=== PATIENT | male | born 1955 | race American Indian/Alaskan Native ===

== ENCOUNTER 2017-02-25 05:45 | Inpatient (IN) | payer BC ==
--- NOTE | 2017-02-25 06:35 | XRay Report ---
FINAL REPORT EXAM: XR CHEST ROUTINE 2V HISTORY: Shortness of breath TECHNIQUE: PA and lateral views of the chest were submitted. FINDINGS: Heart size and mediastinum appear normal. The thoracic aorta is mildly tortuous. Pleural fluid is not seen. The lungs otherwise are clear. The skeletal structures do not show any acute changes. IMPRESSION: No active chest disease.
[2017-02-25] MEDS ORDERED: ZOFRAN IV ONE ×2 (07:01→11:12)
--- NOTE | 2017-02-25 07:05 | Emergency Department Report ---
HPI - General Chief Complaint: Abdominal Pain Time Seen by Provider: 02/25/17 06:49 - HPI HPI: This is a 61-year-old male who presents to the emergency department with complaint of some abdominal pain, nausea, vomiting, acid reflux and shortness of breath that started last night after the patient went out to eat. He said at first it felt like a burning sensation like acid reflux and then lead to nausea with vomiting 4 times. He also started having some diarrhea. He says his abdomen hurts "like when you have diarrhea." He says that the abdominal discomfort is causing him to feel like he is short of breath. He has a past medical history of asthma, GERD, hypertension. He just drove here from [facility] yesterday and has a primary care physician there. ED Past Medical Hx - Past Medical History Previous Medical History?: Yes Hx Hypertension: Yes Hx GERD: Yes Hx Asthma: Yes - Social History Smoking Status: Never Smoker Substance Use Type: None - Medications Home Medications: Home Medications Medication Instructions Recorded Confirmed Last Taken Type ALBUTEROL Inhaler [Proair] 2 puff IH QID PRN 02/25/17 02/25/17 Unknown History Celecoxib [celeBREX] 200 mg PO BID 02/25/17 02/25/17 02/24/17 History Fluticasone/Salmeterol [Advair 1 each IH BID 02/25/17 02/25/17 Unknown History 100-50 Diskus] Losartan/Hydrochlorothiazide 1 each PO DAILY 02/25/17 02/25/17 Unknown History [Losartan-Hctz 100-25 mg Tab] Prednisone [predniSONE 10 mg 10 mg PO .TAPER 02/25/17 02/25/17 02/24/17 History (6-Day Pack, 21 Tabs)] ED Review of Systems ROS: Stated complaint: SOB/ABD PAIN Other details as noted in HPI Comment: All other systems reviewed and negative Constitutional: denies: chills, fever Eyes: denies: eye pain, eye discharge, vision change ENT: denies: ear pain, throat pain Respiratory: shortness of breath. denies: wheezing Cardiovascular: denies: chest pain, palpitations Gastrointestinal: abdominal pain, nausea, vomiting, diarrhea Genitourinary: denies: urgency, dysuria Musculoskeletal: denies: back pain, joint swelling, arthralgia Skin: denies: rash, lesions Neurological: denies: headache, weakness, paresthesias Physical Exam - Physical Exam Vital Signs: Vital Signs 02/25/17 02/25/17 05:59 06:06 Temperature 97.4 F L Pulse Rate 93 H Respiratory 20 20 Rate Blood Pressure 170/102 O2 Sat by Pulse 94 96 Oximetry Physical Exam: GENERAL: The patient is well-developed well-nourished. HENT: Normocephalic. Atraumatic. Patient has moist mucous membranes. EYES: Extraocular motions are intact. Pupils equal reactive to light bilaterally. NECK: Supple. Trachea is midline. CHEST/LUNGS: Clear to auscultation. There is no respiratory distress noted. HEART/CARDIOVASCULAR: Regular. There is no tachycardia. There is no murmur. ABDOMEN: Abdomen is soft. Mild generalized tenderness to palpation. No guarding or rebound tenderness. Obese habitus. Patient has normal bowel sounds. SKIN: Skin is warm and dry. NEURO: The patient is awake, alert, and oriented. The patient is cooperative. The patient has no focal neurologic deficits. The patient has normal speech. MUSCULOSKELETAL: There is no tenderness or deformity. There is no limitation range of motion. There is no evidence of acute injury. ED Course Vital Signs 02/25/17 02/25/17 05:59 06:06 Temperature 97.4 F L Pulse Rate 93 H Respiratory 20 20 Rate Blood Pressure 170/102 O2 Sat by Pulse 94 96 Oximetry ED Medical Decision Making - Lab Data Result diagrams: 02/25/17 06:40 02/25/17 06:40 - EKG Data -: EKG Interpreted by [place] EKG shows normal: sinus rhythm, axis (left axis deviation), intervals, QRS complexes, ST-T waves (nonspecific ST-T waves) Rate: normal - EKG Data When compared to previous EKG there are: previous EKG unavailable Interpretation: nonspecific ST-T wave slava - Radiology Data Radiology results: report reviewed, image reviewed interpreted by me: Chest x-ray does not show any acute process. There are no pleural effusions, obvious pneumonia and there is no pneumothorax. Abdominal x-ray shows nonspecific nonobstructive bowel gas. CT ABDOMEN PELVIS WITH CONTRAST: HISTORY: abdominal pain. COMPARISON: none. TECHNIQUE: Helical CT in 1.25mm intervals following IV contrast. Sagittal and coronal reconstructions. FINDINGS: Lung bases: Normal. Liver: Normal. Biliary system: Normal. Pancreas: Normal. Spleen: Normal. Kidneys/ureters/bladder: Normal. Adrenal glands: Normal. Aorta: Normal. Intestines: Normal. Appendix: Normal. Pelvic viscera: Normal. Ascites: None. Adenopathy: None. Musculoskeletal: Moderate thoracolumbar spondylosis is noted. IMPRESSION: Unremarkable CT scan of the abdomen and pelvis with contrast. Transcribed By: TTR Dictated By: BAUDILIO GOMEZ JR, MD Electronically Authenticated By: BAUDILIO GOMEZ JR, MD Signed Date/Time: 02/25/[address] ABDOMEN PELVIS WITH CONTRAST: HISTORY: abdominal pain. COMPARISON: none. TECHNIQUE: Helical CT in 1.25mm intervals following IV contrast. Sagittal and coronal reconstructions. FINDINGS: Lung bases: Normal. Liver: Normal. Biliary system: Normal. Pancreas: Normal. Spleen: Normal. Kidneys/ureters/bladder: Normal. Adrenal glands: Normal. Aorta: Normal. Intestines: Normal. Appendix: Normal. Pelvic viscera: Normal. Ascites: None. Adenopathy: None. Musculoskeletal: Moderate thoracolumbar spondylosis is noted. IMPRESSION: Unremarkable CT scan of the abdomen and pelvis with contrast. Transcribed By: TTR Dictated By: BAUDILIO GOMEZ JR, MD Electronically Authenticated By: BAUDILIO GOMEZ JR, MD Signed Date/Time: 02/25/17 1013 - Medical Decision Making This patient presents with the complaint of some abdominal discomfort, nausea and vomiting as well as some shortness breath. He thinks he may have gotten food poisoning from something he ate during his trip yesterday. Abdominal x- ray is unremarkable. CT of the abdomen and pelvis is also unremarkable and did not show any etiology of his symptoms. He was given some pain medication and nausea medication. Regarding his shortness of breath, a d-dimer was done secondary to his long car ride and it came back elevated at greater than 1000. Unable to get appropriate IV access to get a CT angiography of the chest, so a VQ scan was done that came back resulting as high probability for a pulmonary embolism. He has been placed on heparin and has no history of any type of GI or internal bleeding. Vital signs stable throughout his ED course. - Differential Diagnosis PE, Pneumonia, Food Poisoning, Colitis Critical Care Time: No Critical care attestation.: If time is entered above; I have spent that time in minutes in the direct care of this critically ill patient, excluding procedure time. ED Disposition Clinical Impression: Hypertensive urgency Pulmonary embolism Qualifiers: Pulmonary embolism type: other Chronicity: acute Acute cor pulmonale presence: without acute cor pulmonale Qualified Code(s): I26.99 - Other pulmonary embolism without acute cor pulmonale Abdominal pain Qualifiers: Abdominal location: generalized Qualified Code(s): R10.84 - Generalized abdominal pain Nausea & vomiting Qualifiers: Vomiting type: unspecified Vomiting Intractability: non-intractable Qualified Code(s): R11.2 - Nausea with vomiting, unspecified Disposition: DC-09 OP ADMIT IP TO THIS HOSP Is pt being admited?: Yes Condition: Stable Referrals: KHADIJAH ZARATE MD [Primary Care Provider] - 3-5 Days Time of Disposition: 12:50
[2017-02-25 07:15] LABS: Basophils % (Auto) 1.2 % (0.0-1.8); Eosinophils % (Auto) 1.8 % (0.0-4.3); Hematocrit 44.5 % (35.5-45.6); Hemoglobin 14.6 gm/dl (11.8-15.2); Mean Corpuscular HGB Conc 33 % (32-34); Mean Corpuscular Hemoglobin 27 pg (28-32); Mean Corpuscular Volume 82 fl (84-94); Platelet Count 248 K/mm3 (140-440); White Blood Count 9.4 K/mm3 (4.5-11.0)
--- NOTE | 2017-02-25 07:35 | XRay Report ---
ABDOMEN, 2 views: History: Abdominal pain. There is no evidence of free air beneath the diaphragms. The gas pattern within the abdomen is unremarkable. There is no evidence of bowel dilatation, significant air-fluid levels, or pathologic calcifications. Organ shadows are unremarkable. IMPRESSION: Unremarkable abdomen.
[2017-02-25 07:36] LABS: Alanine Aminotransferase 34 units/L (7-56); Albumin 3.9 g/dL (3.9-5); Albumin/Globulin Ratio 1.4 %; Alkaline Phosphatase 67 units/L (35-129); Anion Gap 19 mmol/L; BUN/Creatinine Ratio 23; Blood Urea Nitrogen 18 mg/dL (9-20); Calcium 8.9 mg/dL (8.4-10.2); Carbon Dioxide 28 mmol/L (22-30); Chloride 97.1 mmol/L (98-107); Glucose 218 mg/dL (75-100); Lipase 206 units/L (13-60); Potassium 3.5 mmol/L (3.6-5.0); Sodium 141 mmol/L (137-145); Total Protein 6.6 g/dL (6.3-8.2)
[2017-02-25 07:43] LABS: INR 0.92 (0.87-1.13)
[2017-02-25 07:44] LABS: Partial Thromboplastin Time 20.7 Sec. (24.2-36.6)
[2017-02-25] MEDS ORDERED: NACL ONE (08:02)
[2017-02-25 08:45] LABS: Bilirubin,Urine NEG (Negative); Blood,Urine NEG (Negative); Ketones,Urine NEG (Negative); Leukocyte Esterase,Urine NEG (Negative); Mucus,Urine FEW /HPF; Nitrite,Urine NEG (Negative); Protein,Urine <15 mg/dL mg/dL (Negative)
--- NOTE | 2017-02-25 10:18 | Cat Scan Report ---
CT ABDOMEN PELVIS WITH CONTRAST: HISTORY: abdominal pain. COMPARISON: none. TECHNIQUE: Helical CT in 1.25mm intervals following IV contrast. Sagittal and coronal reconstructions. FINDINGS: Lung bases: Normal. Liver: Normal. Biliary system: Normal. Pancreas: Normal. Spleen: Normal. Kidneys/ureters/bladder: Normal. Adrenal glands: Normal. Aorta: Normal. Intestines: Normal. Appendix: Normal. Pelvic viscera: Normal. Ascites: None. Adenopathy: None. Musculoskeletal: Moderate thoracolumbar spondylosis is noted. IMPRESSION: Unremarkable CT scan of the abdomen and pelvis with contrast.
--- NOTE | 2017-02-25 10:54 | Nuclear Medicine Report ---
LUNG SCAN, VENTILATION AND PERFUSION: History: Shortness of breath, elevated d-dimer. Technique: 5mci of Tc99m MAA was infused for the perfusion images. 15mci XE 133 gas was inhaled for the ventilatory images. Correlation is made with a chest x-ray dated 02/25/17. Findings: Inhalation of Xenon gas demonstrates a normal distribution of the activity throughout both lungs. The wash out phases demonstrate mild retention of the radiotracer bilaterally. After injection of Technetium 99m macroaggregated albumin gamma camera imaging of the lungs in multiple projections demonstrates Multiple bilateral mis-matched perfusion defects extending to the pleural surface. IMPRESSION: High probability for pulmonary embolus. These findings were discussed with Dr. Quintana in the ER at 1048 hrs.
[2017-02-25] MEDS ORDERED: HEPARIN 10,000 UNITS/10 ML IV ONE (11:04)
[2017-02-25] MEDS ORDERED: MORPHINE IV ONE (11:42)
[2017-02-25] MEDS ORDERED: NORMODYNE IV ONE (11:42)
[2017-02-25] MEDS ORDERED: HEPARIN/ 0.45% NACL-25,000 UNIT/500 ML 25,000 UNIT/500 ML BAG IV SCH (12:00)
--- NOTE | 2017-02-25 12:43 | History and Physical Report ---
History of Present Illness Chief complaint: My stomach hurts, and im short of breath History of present illness: 61 YO Male with HTN, GERD, Asthma, Obesity, Metabolic Syndrome presents to ED for evaluation. Pt states that he has experienced abdominal pain, nausea, vomiting, and shortness of breath over the past 1 day with worsening symptoms over the past 6 hours. Pt states that his symptoms worsened last night after eating a late dinner. Pt states that he felt a burning sensation like "acid reflux" and subsequent nausea with vomiting 4 times. Pt also acknowledges shortness of breath and mild chest discomfort with deep breathing over the past 6 hours as well. Pt seen and evaluted in ED and found to be in respiratory distress and placed on supplemental oxygen. VQ scan consistent with PE. Pt denies fever, chills, CP, Palpitations, syncope, hemoptysis, BRBPR, seizures, vertigo, or recent ill contacts, individual/family history of DVT/PE. Pt acknowledges prolonged immobilty and prolonged travel. Pt drove to [place] from [facility] yesterday. Pt acknowledges noncompliance with antihypertensive medication. Past History Past Medical History: GERD, hypertension, other (Asthma, Metabolic Syndrome) Past Surgical History: No surgical history, Other (reviewed) Social history: , lives with family. denies: smoking, alcohol abuse, prescription drug abuse Family history: diabetes, hypertension Medications and Allergies Allergies Allergy/AdvReac Type Severity Reaction Status Date / Time aspirin Allergy Vomiting Verified 02/25/17 06:05 Penicillins Allergy Rash Verified 02/25/17 06:05 Home Medications Medication Instructions Recorded Confirmed Last Taken Type ALBUTEROL Inhaler [Proair] 2 puff IH QID PRN 02/25/17 02/25/17 Unknown History Celecoxib [celeBREX] 200 mg PO BID 02/25/17 02/25/17 02/24/17 History Fluticasone/Salmeterol [Advair 1 each IH BID 02/25/17 02/25/17 Unknown History 100-50 Diskus] Losartan/Hydrochlorothiazide 1 each PO DAILY 02/25/17 02/25/17 Unknown History [Losartan-Hctz 100-25 mg Tab] Prednisone [predniSONE 10 mg 10 mg PO .TAPER 02/25/17 02/25/17 02/24/17 History (6-Day Pack, 21 Tabs)] Active Meds: Active Medications Heparin Sodium/Sodium Chloride (Heparin/ 0.45% Nacl-25,000 Unit/500 Ml) 25,000 unit in 500 mls @ 30 mls/hr IV TITR HARRISON; 1,500 UNITS/HR PRN Reason: Protocol Last Admin: 02/25/17 11:56 Dose: 1,500 units/hr, 30 mls/hr Review of Systems Constitutional: no weight loss, no weight gain, no fever, no chills Ears, nose, mouth and throat: no ear pain, no ear discharge, no tinnitis, no decreased hearing, no nose pain Cardiovascular: shortness of breath, no chest pain Respiratory: no cough, no cough with sputum Gastrointestinal: abdominal pain, nausea, vomiting, diarrhea Genitourinary Male: no dysuria, no hematuria, no flank pain, no discharge Rectal: no pain, no incontinence, no bleeding Musculoskeletal: no neck stiffness, no neck pain, no shooting arm pain, no arm numbness/tingling, no low back pain Integumentary: no rash, no pruritis, no redness, no sores, no wounds Neurological: no transient paralysis, no paralysis, no weakness, no parathesias , no numbness Psychiatric: no anxiety, no memory loss, no change in sleep habits, no sleep disturbances, no insomnia, no hypersomnia Endocrine: no cold intolerance, no heat intolerance, no polyphagia, no excessive thirst, no polydipsia, no polyuria Hematologic/Lymphatic: no easy bruising, no easy bleeding Allergic/Immunologic: no urticaria, no allergic rhinitis, no wheezing Exam - Constitutional Vitals: Temp Pulse Resp BP Pulse Ox 97.8 F 97 H 18 186/118 96 02/25/17 10:47 02/25/17 11:50 02/25/17 10:47 02/25/17 11:50 02/25/17 10:47 General appearance: Present: mild distress - EENT Eyes: Present: PERRL ENT: hearing intact, clear oral mucosa - Neck Neck: Present: supple, normal ROM - Respiratory Respiratory effort: labored Respiratory: bilateral: diminished - Cardiovascular Heart Sounds: Present: S1 & S2. Absent: rub, click - Extremities Extremities: pulses symmetrical, No edema Peripheral Pulses: within normal limits - Abdominal General gastrointestinal: Present: soft, non-tender, non-distended, normal bowel sounds Male genitourinary: Present: normal - Integumentary Integumentary: Present: clear, warm, dry - Musculoskeletal Musculoskeletal: gait normal, strength equal bilaterally - Psychiatric Psychiatric: appropriate mood/affect, intact judgment & insight, agitated - Neurologic Neurologic: CNII-XII intact, moves all extremities Results - Labs CBC & Chem 7: 02/25/17 06:40 02/25/17 06:40 Labs: Abnormal lab results 02/25/17 02/25/17 02/25/17 Range/Units 06:40 06:40 07:15 RBC 5.40 H (3.65-5.03) M/mm3 MCV 82 L (84-94) fl MCH 27 L (28-32) pg [place] % (Auto) 7.4 H (0.0-7.3) % Seg Neutrophils % 72.5 H (40.0-70.0) % APTT 20.7 L (24.2-36.6) Sec. D-Dimer 1121.32 H (0-234) ng/mlDDU Potassium 3.5 L (3.6-5.0) mmol/L Chloride 97.1 L (98-107) mmol/L Glucose 218 H (75-100) mg/dL Lipase 206 H (13-60) units/L Assessment and Plan - Patient Problems (1) Acute respiratory failure Current Visit: Yes Status: Acute Plan to address problem: supplemental oxygen, nebulizer therapy, aspiration precautions, supportive care. (2) GERD (gastroesophageal reflux disease) Current Visit: Yes Status: Acute Plan to address problem: PPI therapy, No alarm symptoms, outpatient DI f/u for screening endoscopy as indicated. (3) Metabolic syndrome Current Visit: Yes Status: Acute Plan to address problem: Balanced diet, increased physical activity, low cholesterol diet, (4) Hypertensive urgency Current Visit: Yes Status: Acute Plan to address problem: Monitor bp q shift,IV hydralazine prn, continue medical management, resume losartan, and HCTZ, (5) Pulmonary embolism Current Visit: Yes Status: Acute Qualifiers: Pulmonary embolism type: other Chronicity: acute Acute cor pulmonale presence: without acute cor pulmonale Qualified Code(s): I26.99 - Other pulmonary embolism without acute cor pulmonale Plan to address problem: Therapeutic anticoagulation with eliquis, supplemental oxygen, incentive spirometry, supportive care, (6) DVT prophylaxis Current Visit: Yes Status: Acute
[2017-02-25] MEDS ORDERED: DULCOLAX PR PRN (12:46)
[2017-02-25] MEDS ORDERED: ZOFRAN IV PRN (12:46)
[2017-02-25] MEDS ORDERED: PROVENTIL IH PRN (12:46)
[2017-02-25] MEDS ORDERED: MILK OF MAGNESIA PO PRN (12:46)
[2017-02-25] MEDS ORDERED: PROAIR IH PRN (18:49)
[2017-02-25] MEDS: BROVANA NEBU IH SCH (21:06)
[2017-02-25] MEDS: PULMICORT IH SCH (21:06)
[2017-02-25] MEDS: ELIQUIS PO SCH (21:34)
[2017-02-25] MEDS ORDERED: SALMETEROL IH SCH (22:00)
[2017-02-25] MEDS ORDERED: FLUTICASONE IH SCH (22:00)
[2017-02-25] MEDS ORDERED: ALUM-MAG HYDROX-SIMETH 200-200-20MG/5ML PO PRN (22:17)
[2017-02-25] MEDS: COZAAR PO SCH (22:35)
[2017-02-25] MEDS: HCTZ PO SCH (22:36)
[2017-02-25] MEDS: TYLENOL PO PRN (22:52)
[2017-02-26] MEDS: PULMICORT IH SCH ×2 (08:23→20:11)
[2017-02-26] MEDS: BROVANA NEBU IH SCH ×2 (08:23→20:11)
--- NOTE | 2017-02-26 09:40 | Progress Note ---
Assessment and Plan Assessment and plan: --Acute hypoxic respiratory failure; secondary to PE Oxygen titrate O2 sats to more than 90%, nebulizers supportive care --Acute pulmonary embolism; continue Eliquis Lower extremity venous Doppler negative for DVT, patient may need to follow with [employer] in [place] For possible hypercoagulable workup upon discharge --Malignant hypertension; moderate control, continue current antihypertensives and when necessary medications --Gastroesophageal reflux disease; continue Protonix --Morbid obesity; BMI 39.2, counseling done advised diet modification and exercise as tolerated and weight reduction when medically stable Patient verbalized understanding --DVT prophylaxis; patient is already on Eliquis --Full code Closely monitor the patient and adjust management as needed Possible discharge in 1-2 days if stable Patient's condition and treatment plan reviewed with the patient and the family member at the bedside They had many questions and I answered all of them History Interval history: Patient seen and examined medical records reviewed Complaints of mild shortness of breath, denies chest pain Alert awake Oriented 3 not in acute distress Hospitalist Physical - Constitutional Vitals: Temp Pulse Resp BP Pulse Ox 98.0 F 91 H 22 135/86 94 02/26/17 07:59 02/26/17 07:59 02/26/17 07:59 02/26/17 07:59 02/26/17 07:59 General appearance: Present: no acute distress, well-nourished, obese - EENT Eyes: Present: PERRL, EOM intact - Neck Neck: Present: supple, normal ROM - Respiratory Respiratory effort: normal Respiratory: bilateral: diminished, rhonchi, negative: rales, wheezing - Cardiovascular Rhythm: regular Heart Sounds: Present: S1 & S2 - Extremities Extremities: no ischemia, No edema - Abdominal General gastrointestinal: soft, non-tender, non-distended, normal bowel sounds - Integumentary Integumentary: Present: clear, warm - Psychiatric Psychiatric: appropriate mood/affect, cooperative - Neurologic Neurologic: CNII-XII intact, moves all extremities Results - Labs CBC & Chem 7: 02/25/17 06:40 02/25/17 06:40 Labs: Laboratory Last Values WBC 9.4 K/mm3 (4.5-11.0) 02/25/17 06:40 RBC 5.40 M/mm3 (3.65-5.03) H 02/25/17 06:40 Hgb 14.6 gm/dl (11.8-15.2) 02/25/17 06:40 Hct 44.5 % (35.5-45.6) 02/25/17 06:40 MCV 82 fl (84-94) L 02/25/17 06:40 MCH 27 pg (28-32) L 02/25/17 06:40 MCHC 33 % (32-34) 02/25/17 06:40 RDW 14.0 % (13.2-15.2) 02/25/17 06:40 Plt Count 248 K/mm3 (140-440) 02/25/17 06:40 Lymph % (Auto) 17.1 % (13.4-35.0) 02/25/17 06:40 [place] % (Auto) 7.4 % (0.0-7.3) H 02/25/17 06:40 Eos % (Auto) 1.8 % (0.0-4.3) 02/25/17 06:40 Baso % (Auto) 1.2 % (0.0-1.8) 02/25/17 06:40 Lymph # 1.6 K/mm3 (1.2-5.4) 02/25/17 06:40 [place] # 0.7 K/mm3 (0.0-0.8) 02/25/17 06:40 Eos # 0.2 K/mm3 (0.0-0.4) 02/25/17 06:40 Baso # 0.1 K/mm3 (0.0-0.1) 02/25/17 06:40 Seg Neutrophils % 72.5 % (40.0-70.0) H 02/25/17 06:40 Seg Neutrophils # 6.8 K/mm3 (1.8-7.7) 02/25/17 06:40 PT 12.8 Sec. (12.2-14.9) 02/25/17 07:15 INR 0.92 (0.87-1.13) 02/25/17 07:15 APTT 20.7 Sec. (24.2-36.6) L 02/25/17 07:15 D-Dimer 1121.32 ng/mlDDU (0-234) H 02/25/17 07:15 Heparin Anti-Xa Level 0.69 U.I./ml (0.3-0.7) 02/25/17 17:25 Sodium 141 mmol/L (137-145) 02/25/17 06:40 Potassium 3.5 mmol/L (3.6-5.0) L 02/25/17 06:40 Chloride 97.1 mmol/L (98-107) L 02/25/17 06:40 Carbon Dioxide 28 mmol/L (22-30) 02/25/17 06:40 Anion Gap 19 mmol/L 02/25/17 06:40 BUN 18 mg/dL (9-20) 02/25/17 06:40 Creatinine 0.8 mg/dL (0.8-1.5) 02/25/17 06:40 Estimated GFR > 60 ml/min 02/25/17 06:40 BUN/Creatinine Ratio 23 % 02/25/17 06:40 Glucose 218 mg/dL (75-100) H 02/25/17 06:40 Calcium 8.9 mg/dL (8.4-10.2) 02/25/17 06:40 Total Bilirubin 0.60 mg/dL (0.1-1.2) 02/25/17 06:40 AST 23 units/L (5-40) 02/25/17 06:40 ALT 34 units/L (7-56) 02/25/17 06:40 Alkaline Phosphatase 67 units/L (35-129) 02/25/17 06:40 Troponin T < 0.010 ng/mL (0.00-0.029) 02/25/17 06:40 Total Protein 6.6 g/dL (6.3-8.2) 02/25/17 06:40 Albumin 3.9 g/dL (3.9-5) 02/25/17 06:40 Albumin/Globulin Ratio 1.4 % 02/25/17 06:40 Lipase 206 units/L (13-60) H 02/25/17 06:40 Urine Color Yellow (Yellow) 02/25/17 08:24 Urine Turbidity Clear (Clear) 02/25/17 08:24 Urine pH 6.0 (5.0-7.0) 02/25/17 08:24 Ur Specific [place] 1.026 (1.003-1.030) 02/25/17 08:24 Urine Protein <15 mg/dl mg/dL (Negative) 02/25/17 08:24 Urine Glucose (UA) 150 mg/dL (Negative) 02/25/17 08:24 Urine Ketones Neg mg/dL (Negative) 02/25/17 08:24 Urine Blood Neg (Negative) 02/25/17 08:24 Urine Nitrite Neg (Negative) 02/25/17 08:24 Urine Bilirubin Neg (Negative) 02/25/17 08:24 Urine Urobilinogen 2.0 mg/dL (<2.0) 02/25/17 08:24 Ur Leukocyte Esterase Neg (Negative) 02/25/17 08:24 Urine WBC (Auto) 1.0 /HPF (0.0-6.0) 02/25/17 08:24 Urine RBC (Auto) 6.0 /HPF (0.0-6.0) 02/25/17 08:24 Urine Mucus Few /HPF 02/25/17 08:24
[2017-02-26] MEDS ORDERED: DELTASONE PO ONE (10:00)
[2017-02-26] MEDS: HCTZ PO SCH (10:06)
[2017-02-26] MEDS: ELIQUIS PO SCH ×2 (10:06→21:04)
[2017-02-26] MEDS: COZAAR PO SCH (10:07)
--- NOTE | 2017-02-26 13:11 | Vascular Lab Report ---
LOWER EXTREMITY VENOUS DUPLEX: REASON FOR EXAM: Pulmonary embolism, deep venous thrombosis. COMMENTS ON THE RIGHT: All veins visualized are freely compressible without evidence of internal echogenicity. Flow is spontaneous and phasic throughout. COMMENTS ON THE LEFT: All veins visualized are freely compressible without evidence of internal echogenicity. Flow is spontaneous and phasic throughout. IMPRESSION: No evidence of acute or chronic deep venous thrombosis in either lower extremity.
[2017-02-26] MEDS: TYLENOL PO PRN (21:06)
[2017-02-27] MEDS: APRESOLINE IV PRN ×2 (00:18→11:01)
[2017-02-27] MEDS: PULMICORT IH SCH (07:17)
[2017-02-27] MEDS: BROVANA NEBU IH SCH (07:17)
--- NOTE | 2017-02-27 08:10 | Progress Note ---
Assessment and Plan Assessment and plan: --Acute hypoxic respiratory failure; secondary to PE Oxygen titrate O2 sats to more than 90%, nebulizers supportive care --Acute pulmonary embolism; continue Eliquis Lower extremity venous Doppler negative for DVT, patient may need to follow with security system sales consultant in [place] For possible hypercoagulable workup upon discharge --Malignant hypertension; moderate control, continue current antihypertensives and when necessary medications --Gastroesophageal reflux disease; continue Protonix --Morbid obesity; BMI 39.2, counseling done advised diet modification and exercise as tolerated and weight reduction when medically stable Patient verbalized understanding --DVT prophylaxis; patient is already on Eliquis --Full code Closely monitor the patient and adjust management as needed Possible discharge in 1-2 days if stable Patient's condition and treatment plan reviewed with the patient and the family member at the bedside They had many questions and I answered all of them Hospitalist Physical - Constitutional Vitals: Temp Pulse Resp BP Pulse Ox 97.8 F 101 H 16 142/98 98 02/27/17 04:59 02/27/17 04:59 02/27/17 04:59 02/27/17 04:59 02/27/17 04:59 General appearance: Present: no acute distress, well-nourished, obese Results - Labs CBC & Chem 7: 02/25/17 06:40 02/25/17 06:40 Labs: Laboratory Last Values WBC 9.4 K/mm3 (4.5-11.0) 02/25/17 06:40 RBC 5.40 M/mm3 (3.65-5.03) H 02/25/17 06:40 Hgb 14.6 gm/dl (11.8-15.2) 02/25/17 06:40 Hct 44.5 % (35.5-45.6) 02/25/17 06:40 MCV 82 fl (84-94) L 02/25/17 06:40 MCH 27 pg (28-32) L 02/25/17 06:40 MCHC 33 % (32-34) 02/25/17 06:40 RDW 14.0 % (13.2-15.2) 02/25/17 06:40 Plt Count 248 K/mm3 (140-440) 02/25/17 06:40 Lymph % (Auto) 17.1 % (13.4-35.0) 02/25/17 06:40 Hart % (Auto) 7.4 % (0.0-7.3) H 02/25/17 06:40 Eos % (Auto) 1.8 % (0.0-4.3) 02/25/17 06:40 Baso % (Auto) 1.2 % (0.0-1.8) 02/25/17 06:40 Lymph # 1.6 K/mm3 (1.2-5.4) 02/25/17 06:40 Hart # 0.7 K/mm3 (0.0-0.8) 02/25/17 06:40 Eos # 0.2 K/mm3 (0.0-0.4) 02/25/17 06:40 Baso # 0.1 K/mm3 (0.0-0.1) 02/25/17 06:40 Seg Neutrophils % 72.5 % (40.0-70.0) H 02/25/17 06:40 Seg Neutrophils # 6.8 K/mm3 (1.8-7.7) 02/25/17 06:40 PT 12.8 Sec. (12.2-14.9) 02/25/17 07:15 INR 0.92 (0.87-1.13) 02/25/17 07:15 APTT 20.7 Sec. (24.2-36.6) L 02/25/17 07:15 D-Dimer 1121.32 ng/mlDDU (0-234) H 02/25/17 07:15 Heparin Anti-Xa Level 0.69 U.I./ml (0.3-0.7) 02/25/17 17:25 Sodium 141 mmol/L (137-145) 02/25/17 06:40 Potassium 3.5 mmol/L (3.6-5.0) L 02/25/17 06:40 Chloride 97.1 mmol/L (98-107) L 02/25/17 06:40 Carbon Dioxide 28 mmol/L (22-30) 02/25/17 06:40 Anion Gap 19 mmol/L 02/25/17 06:40 BUN 18 mg/dL (9-20) 02/25/17 06:40 Creatinine 0.8 mg/dL (0.8-1.5) 02/25/17 06:40 Estimated GFR > 60 ml/min 02/25/17 06:40 BUN/Creatinine Ratio 23 % 02/25/17 06:40 Glucose 218 mg/dL (75-100) H 02/25/17 06:40 Calcium 8.9 mg/dL (8.4-10.2) 02/25/17 06:40 Total Bilirubin 0.60 mg/dL (0.1-1.2) 02/25/17 06:40 AST 23 units/L (5-40) 02/25/17 06:40 ALT 34 units/L (7-56) 02/25/17 06:40 Alkaline Phosphatase 67 units/L (35-129) 02/25/17 06:40 Troponin T < 0.010 ng/mL (0.00-0.029) 02/25/17 06:40 Total Protein 6.6 g/dL (6.3-8.2) 02/25/17 06:40 Albumin 3.9 g/dL (3.9-5) 02/25/17 06:40 Albumin/Globulin Ratio 1.4 % 02/25/17 06:40 Lipase 206 units/L (13-60) H 02/25/17 06:40 Urine Color Yellow (Yellow) 02/25/17 08:24 Urine Turbidity Clear (Clear) 02/25/17 08:24 Urine pH 6.0 (5.0-7.0) 02/25/17 08:24 Ur Specific [place] 1.026 (1.003-1.030) 02/25/17 08:24 Urine Protein <15 mg/dl mg/dL (Negative) 02/25/17 08:24 Urine Glucose (UA) 150 mg/dL (Negative) 02/25/17 08:24 Urine Ketones Neg mg/dL (Negative) 02/25/17 08:24 Urine Blood Neg (Negative) 02/25/17 08:24 Urine Nitrite Neg (Negative) 02/25/17 08:24 Urine Bilirubin Neg (Negative) 02/25/17 08:24 Urine Urobilinogen 2.0 mg/dL (<2.0) 02/25/17 08:24 Ur Leukocyte Esterase Neg (Negative) 02/25/17 08:24 Urine WBC (Auto) 1.0 /HPF (0.0-6.0) 02/25/17 08:24 Urine RBC (Auto) 6.0 /HPF (0.0-6.0) 02/25/17 08:24 Urine Mucus Few /HPF 02/25/17 08:24
--- NOTE | 2017-02-27 09:16 | Discharge Summary ---
Providers - Providers Date of Admission: 02/25/17 12:46 Date of discharge: 02/27/17 Attending physician: MONICA FORREST Primary care physician: KHADIJAH ZARATE Hospitalization Reason for admission: shortness of breath and chest pain Condition: Stable Pertinent studies: VQ scan; high probability for PE Lower extremity venous Doppler; negative for DVT Chest x-ray; no acute abnormalities noted CT abdomen and pelvis; no acute abnormality noted Hospital course: 61-year-old morbidly obese -Portuguese male patient with significant past medical history of recent knee surgery, traveled from [place] to attend a meeting here was admitted through emergency room with shortness of breath and chest pain , initial workup is consistent with high d-dimer is, VQ scan high probability for PE, lower extremity venous Dopplers negative for DVT Patient wasn't started on full dose anticoagulation later changed to Eliquis 10 mg by mouth twice a day Patient also received symptomatic management. Symptoms significantly improved, but is comfortable in bed no new complaints, alert awake oriented 3 Ambulatory and tolerating oral nutrition [id number] evaluation physical examination done by me prior to discharge is unremarkable Final diagnosis; --Acute hypoxic respiratory failure; secondary to PE, received supplemental oxygen, at discharge patient's room air O2 sats are 97% --Acute pulmonary embolism; continue Eliquis, Lower extremity venous Doppler negative for DVT, --Malignant hypertension; moderate control, --Gastroesophageal reflux disease; continue Protonix --Morbid obesity; BMI 39.2, advised diet modification and exercise as tolerated and weight reduction when medically stable --Possible obstructive sleep apnea; patient needs outpatient sleep study to rule out LILY --Follow-up with private air intelligence specialist for further evaluation, possible hypercoagulable workup if needed Disposition: ME-01 TO HOME OR SELFCARE Time spent for discharge: 32 min Core Measure Documentation - Palliative Care Palliative Care/ Comfort Measures: Not Applicable - Core Measures Any of the following diagnoses?: DVT/PE - VTE Discharge Requirements Deep Vein Thrombosis/Pulmonary Embolism Present on Admission: Yes Has pt received <5 days of overlap therapy or INR<2.0: Yes (on Eliquis) Anticoagulant overlap therapy prescribed at discharge: No Contraindication No Overlap Therapy order at DC: Not Indicated (on Eliquis) Exam - Constitutional Vitals: Temp Pulse Resp BP Pulse Ox 98.3 F 89 22 165/103 94 02/27/17 07:30 02/27/17 07:30 02/27/17 07:30 02/27/17 07:30 02/27/17 07:30 General appearance: Present: no acute distress, obese - EENT Eyes: Present: PERRL, EOM intact - Neck Neck: Present: supple, normal ROM - Respiratory Respiratory effort: normal Respiratory: bilateral: diminished, rhonchi, negative: rales, wheezing - Cardiovascular Rhythm: regular Heart Sounds: Present: S1 & S2 - Extremities Extremities: no ischemia, No edema - Abdominal General gastrointestinal: Present: soft, non-tender, non-distended, normal bowel sounds - Integumentary Integumentary: Present: clear, warm - Musculoskeletal Musculoskeletal: strength equal bilaterally, generalized weakness - Psychiatric Psychiatric: appropriate mood/affect, cooperative - Neurologic Neurologic: CNII-XII intact, moves all extremities Plan Activity: no restrictions Diet: low salt Additional Instructions: see private air intelligence specialist [ [place]] in 1 week for further testing. Advise to see senior sales representative [ lung doc]out of town , for out patient sleep study to r/o obstructive sleep apnea. If you notice any bleeding ,contact MD or go to ER Follow up with: KHADIJAH ZARATE MD [Primary Care Provider] - 3-5 Days Prescriptions: ALPRAZolam [Xanax] 0.25 mg PO BID PRN #10 tablet PRN Reason: Anxiety Apixaban [Eliquis] 2 tab PO Q12HR #66 tablet hydrALAZINE [Apresoline TAB] 25 mg PO Q8HR #60 tablet
[2017-02-27] MEDS: HCTZ PO SCH (09:42)
[2017-02-27] MEDS: COZAAR PO SCH (09:42)
[2017-02-27] MEDS: ELIQUIS PO SCH (09:43)
[2017-02-27] MEDS ORDERED: DELTASONE PO SCH (10:00)
[2017-02-27 11:01] VITALS: BP 160/100
[2017-02-27] MEDS ORDERED: APRESOLINE PO SCH (14:00)
[2017-03-04] MEDS ORDERED: ELIQUIS PO SCH (22:00)
== END 2017-02-27 14:45 | disposition home or self-care (01) | DRG 175 ==
LOC: ED 05:45 → 3A 12:46
PROVIDERS: ADMIT Internal Medicine; ATTEND Internal Medicine
DX: I26.99 Other pulmonary embolism without acute cor pulmonale (principal); J96.01 Acute respiratory failure with hypoxia; I16.0 Hypertensive urgency; K21.9 Gastro-esophageal reflux disease without esophagitis; E88.81 Metabolic syndrome and other insulin resistance; Z88.6 Allergy status to analgesic agent; Z88.0 Allergy status to penicillin; J45.909 Unspecified asthma, uncomplicated; I10 Essential (primary) hypertension; Z83.3 Family history of diabetes mellitus; Z82.49 Family history of ischemic heart disease and other diseases of the circulatory system; E66.01 Morbid (severe) obesity due to excess calories; Z68.39 Body mass index [BMI] 39.0-39.9, adult
CPT/HCPCS: 36415; 71020; 74020; 74177; 78582; 80053; 81001; 83690; 84484; 85025; 85379; 85520; 85610; 85730; 93005; 93010; 93970; 94640; 96374; 96375; 96376; A9540; A9558; J0360; J1644; J2405; J7512; Q9967